=== PATIENT | female | born 1955 | race Caucasian/White ===

== ENCOUNTER 2024-01-14 00:19 | Outpatient (CLI) | payer MEDICARE, SELFPAY ==
--- NOTE | 2024-01-14 11:01 | DI.CT_ITS ---
Exam(s) CT SINUS WO EXAM: CT SINUS WO CLINICAL HISTORY: Question chronic sinusitis R43.0ANOSMIA R43.8 DISTURBANCE SMELL TASTE R93.0. Eval uate for sinusitis. TECHNIQUE: Imaging Protocol: Axial computed tomography images with coronal and sagittal reformatted images were created and reviewed. COMPARISON: No exams were available for comparison FINDINGS: AXIAL IMAGES: Frontal sinuses: Normally aerated. Ethmoid air cells: There is near complete opacification of the right ethmoid air cells. There is mod erate mucosal thickening in the left ethmoid air cells. Maxillary sinuses: There is complete opacification of the right maxillary sinus with thickening of th e bond consistent with chronic sinusitis. There is mild mucosal thickening seen in the left maxilla ry sinus. No air-fluid level is seen. Sphenoid sinus: There is moderate mucosal thickening in the right sphenoid sinus and mild mucosal thi ckening in the left sphenoid sinus. Ostiomeatal complexes: The ostiomeatal complexes are poorly visualized. This may be due to erosive c hanges versus postsurgical changes. Please correlate clinically. Osseous nasal septum: Midline. There is a spur are on the left aspect of the nasal septum. Visualized regional soft tissues: No acute findings. Orbits: Unremarkable. Bones: Please see above under maxillary sinuses. Mastoid Air Cells: Normally aerated. IMPRESSION: Pansinusitis, right greater than left. Findings of chronic right maxillary sinusitis. RADIATION DOSE DELIVERED: Total DLP Total DLP DATA REPOSITORY: All CT scans at this facility are submitted to the National Radiology Data Registry (NRDR) Dose Index Registry (DIR) with the [employer] ([employer]). RADIATION OPTIMIZATION: All CT scans at this facility use at least one of these dose optimization te chniques: automated exposure control; mA and/or kV adjustment per patient size (includes targeted exa ms where dose is matched to clinical indication); or iterative reconstruction.
== END 2024-01-14 00:39 ==
LOC: DI 00:19
PROVIDERS: PCP Family Medicine; Visit Provider Otolaryngology
DX: J01.40 Acute pansinusitis, unspecified (principal)
CPT/HCPCS: 70486